=== PATIENT | female | born 1955 | race Caucasian/White ===

== ENCOUNTER → 2017-10-26 | Outpatient (CLI) | payer BC ==
[~2017-10-26] MED LIST: FEMARA PO; FLEXERIL 1010 MG/TAB PO; FOSAMAX 35MG35 MG PO; RESTASIS0.05%
== END ==
LOC: MC.RAD 07:49
DX: Z12.31 Encounter for screening mammogram for malignant neoplasm of breast (principal)

== ENCOUNTER → 2018-08-20 | Outpatient (CLI) | payer BC | LOC: COL.PUL 07:59 | DX: R06.89 Other abnormalities of breathing (principal) ==

== ENCOUNTER → 2018-09-17 | Outpatient (CLI) | payer BC | LOC: MC.RAD 11:00 | DX: Z12.31 Encounter for screening mammogram for malignant neoplasm of breast (principal) ==

== ENCOUNTER → 2019-07-20 | Outpatient (CLI) | payer BC | LOC: MC.RAD 08:15 | DX: Z12.31 Encounter for screening mammogram for malignant neoplasm of breast (principal) ==

== ENCOUNTER → 2020-07-13 | Outpatient (CLI) | payer BC | LOC: MC.RAD 07:42 | DX: Z12.31 Encounter for screening mammogram for malignant neoplasm of breast (principal) ==

== ENCOUNTER → 2021-06-21 | Outpatient (CLI) | payer BC | LOC: MC.RAD 11:32 | DX: Z12.31 Encounter for screening mammogram for malignant neoplasm of breast (principal) ==

== ENCOUNTER → 2022-06-23 | Outpatient (CLI) | payer BC | LOC: MC.RAD 07:48 | DX: Z12.31 Encounter for screening mammogram for malignant neoplasm of breast (principal) ==

== ENCOUNTER 2023-09-09 09:01 | Emergency (ER) | payer BC ==
[~2023-09-09] VITALS: Ht 170.2 cm; Wt 54.5 kg
[2023-09-09 09:10] VITALS: TEMP 97.9
[2023-09-09 10:05] LABS: COLLECTION METHOD CLEAN CATCH
[2023-09-09 10:35] LABS: PH 5.5 (5.0-8.5); URINE APPEARANCE Clear (CLEAR/HAZY); URINE BLOOD 2+ (NEGATIVE); URINE COLOR Yellow (YELLOW); URINE GLUCOSE Negative (NEGATIVE); URINE KETONE 2+ (NEGATIVE); URINE NITRATE Negative (NEGATIVE); URINE PROTEIN(semi-quant) 2+ (NEGATIVE)
[2023-09-09 10:36] LABS: MUCOUS Present (NOT PRESENT); SQUAMOUS EPITHELIAL 0-2 /hpf (0-10); URINE BACTERIA None Seen /hpf (NONE SEEN)
[2023-09-09 10:37] LABS: BASO % 0.3 % (0.0-2.0); EOS % 0.2 % (0.0-4.0); GRAN # 9.5 K/mm3 (1.4-6.5); HEMATOCRIT 44.7 % (37.0-47.0); HEMOGLOBIN 14.5 g/dl (12.5-16.0); LYMPH # 0.7 K/mm3 (1.2-3.4); LYMPH % 6.1 % (20.0-51.0); MEAN CELL VOLUME 95 fl (80.0-100.0); MEAN CORPUSCULAR HEMOGLOBIN 31 pg (27-31); MEAN CORPUSCULAR HGB CONC 32 g/dl (33.0-37.0); MEAN PLATELET VOLUME 10.8 fl (7.4-10.4); MONO # 1.2 K/mm3 (0.1-0.6); MONO % 10.1 % (1.7-9.3); PLATELET COUNT 231 K/mm3 (130-400); RED BLOOD COUNT 4.71 M/mm3 (4.10-5.30); REDCELL DISTRIBUTION WIDTH-CV 11.4 % (11.5-14.5)
[2023-09-09 10:48] LABS: ALBUMIN 3.5 gm/dL (3.4-4.8); BILIRUBIN,TOTAL 0.6 mg/dL (0.2-1.2); CALCIUM 8.9 mg/dL (8.4-10.2); CREATININE, serum 0.72 mg/dL (0.57-1.11); POTASSIUM 3.9 mmol/L (3.5-4.5)
[2023-09-09] MEDS ORDERED: SENNA-LAX8.6 MG PO (14:12)
[2023-09-09] MEDS ORDERED: DULCOLAX STOOL100 MG PO (14:12)
[2023-09-09 14:50] VITALS: BP 134/91; PULSE 85
== END 2023-09-09 14:50 | disposition home or self-care (01) ==
LOC: COL.ER 09:01
PROVIDERS: Emergency Medicine
DX: K59.00 Constipation, unspecified (principal); R19.00 Intra-abdominal and pelvic swelling, mass and lump, unspecified site
CPT/HCPCS: J7030; Q9967

== ENCOUNTER → 2024-06-06 | Outpatient (CLI) | payer BC ==
[~2024-06-06] MED LIST changes: +DULCOLAX STOOL100 MG PO; +SENNA-LAX8.6 MG PO
== END ==
LOC: CANSCHCLI → MC.RAD 06:54
DX: Z12.31 Encounter for screening mammogram for malignant neoplasm of breast (principal)